=== PATIENT | male | born 1985 | race African-American/Black ===

== ENCOUNTER 2020-10-31 00:20 | Emergency (ER) | payer OTHER ==
[~2020-10-31] VITALS: Ht 185.4 cm; Wt 81.8 kg
[2020-10-31] MEDS ORDERED: DiphenhydrAMINE HCL 50 MG/ML VIAL IVP ONE (01:00)
[2020-10-31] MEDS ORDERED: PROCHLORPERAZINE EDISYLATE 5 MG/ML 2 ML VIAL IVP ONE (01:00)
[2020-10-31 01:13] VITALS: BP 123/64
[2020-10-31] MEDS ORDERED: HALOPERIDOL 5 MG TABLET PO ONE (05:30)
[2020-10-31] MEDS ORDERED: LORazepam 1 MG TABLET PO ONE (05:30)
== END 2020-10-31 05:55 | disposition home or self-care (01) ==
LOC: EMS 00:21
DX: R51.9 Headache, unspecified (principal)
CPT/HCPCS: 36415; 96374; 96375; 99284; J0780; J1200

== ENCOUNTER 2021-03-06 05:43 | Emergency (ER) | payer OTHER ==
[~2021-03-06] VITALS: Ht 185.4 cm; Wt 81.8 kg
[2021-03-06] MEDS ORDERED: AUD NEB (05:53)
[2021-03-06 06:00] VITALS: BP 105/67
== END 2021-03-06 07:43 | disposition left against medical advice (07) ==
LOC: EMS 05:45
DX: J02.9 Acute pharyngitis, unspecified (principal); Z53.21 Procedure and treatment not carried out due to patient leaving prior to being seen by health care provider